=== PATIENT | female | born 1985 | race African-American/Black ===

== ENCOUNTER 2016-10-26 22:15 | Emergency (ER) | payer BC ==
[~2016-10-26] VITALS: Ht 157.5 cm; Wt 64.9 kg
[~2016-10-26 22:15] MED LIST: IBUPROFEN600 MG ORAL; NORCO 5-325 TA1 EACH ORAL; OXYCONTIN10 MG ORAL; PERCOCET 5-3251 EACH ORAL
[2016-10-26] MEDS ORDERED: HYDROmorphone 1mg/ml Carpuject IVP ONE (23:00)
[2016-10-26 23:15] VITALS: BP 128/74
[2016-10-26 23:15] LABS: APPEARANCE,URINE CLOUDY; EOSINOPHILS % (AUTO) 2.7 % (0.0-3.0); KETONES,URINE 3+ (NEGATIVE); LEUKOCYTE ESTERASE ,URINE 1+ (NEGATIVE); LYMPHOCYTES % (AUTO) 23.2 % (20.0-45.0); MEAN CORPUSCULAR HEMOGLOBIN 28.4 PG (27.0-31.0); MEAN CORPUSCULAR HGB CONC 32.5 G/DL (32.0-36.0); MEAN CORPUSCULAR VOLUME 88 FL (80-99); MEAN PLATELET VOLUME 7.6 FL (6.5-10.1); MONOCYTES % (AUTO) 6.4 % (1.0-10.0); NEUTROPHILS % (AUTO) 66.8 % (45.0-75.0); NITRITE,URINE NEGATIVE (NEGATIVE); PH,URINE 5 (4.5-8.0); PLATELET COUNT 275 K/UL (150-450); PROTEIN,URINE 1+ (NEGATIVE); RED BLOOD COUNT 3.95 M/UL (4.20-5.40); RED CELL DISTRIBUTION WIDTH 11.6 % (11.6-14.8); UROBILINOGEN,URINE NORMAL MG/DL (0.0-1.0); WHITE BLOOD COUNT 6.2 K/UL (4.8-10.8)
[2016-10-26 23:26] LABS: BACTERIA,URINE FEW /HPF; RBC,URINE TNTC /HPF (0 - 2); SQUAMOUS EPITHELIAL CELL,UR FEW /LPF (NONE/OCC)
--- NOTE | 2016-10-26 23:27 | Emergency Room Report ---
History of Present Illness General Chief Complaint: Abdominal Pain Source: Patient Present Illness HPI Is a 30-year-old female with a history of fibroid. She had recent embolization last month. Since then she's been having pain and bleeding. Worse tonight. No fever or chills but no nausea no vomiting. Pain is lower quadrant. 10 out of 10. Worse with movement. Similar presentation in the past. Pain medication not helping. Allergies: Coded Allergies: No Known Allergies (Unverified , 09/17/16) Patient History Past Medical History: see triage record, old chart reviewed Past Surgical History: other Pertinent Family History: none Social History: Denies: smoking Last Menstrual Period: 10/26/16 Now: No Immunizations: other Reviewed Nursing Documentation: PMH: Agreed, PSxH: Agreed Nursing Documentation-PMH Hx Cardiac Problems: No Hx Cancer: No Hx Gastrointestinal Problems: No Hx Neurological Problems: No Review of Systems Eye: Denies: blurred vision, eye pain ENT: Denies: ear pain, nose congestion, throat swelling Respiratory: Denies: cough, shortness of breath Cardiovascular: Denies: chest pain, palpitations Gastrointestinal: Denies: abdominal pain, diarrhea, nausea, vomiting Musculoskeletal: Denies: back pain, joint pain Skin: Denies: rash Neurological: Denies: headache, numbness Endocrine: Denies: increased thirst, increased urine Hematologic/Lymphatic: Denies: easy bruising All Other Systems: negative except mentioned in HPI Physical Exam Vital Signs Date Time Temp Pulse Resp B/P Pulse Ox O2 Delivery O2 Flow Rate FiO2 10/26/16 22:21 98.1 74 17 130/71 99 Room Air vitals normal Sp02 EP Interpretation: reviewed, normal General Appearance: well appearing, no apparent distress, alert Head: normocephalic, atraumatic Eyes: bilateral eye EOMI, bilateral eye PERRL ENT: hearing grossly normal, normal pharynx Neck: full range of motion, supple, no meningismus Respiratory: chest non-tender, lungs clear, normal breath sounds Cardiovascular #1: regular rate, rhythm, no murmur Gastrointestinal: normal bowel sounds, no mass, no organomegaly, no bruit, non- distended, tenderness - Lower abdominal Musculoskeletal: back normal, gait/station normal, normal range of motion Neurologic: alert, oriented x3 Psychiatric: mood/affect normal Skin: warm/dry Medical Decision Making Diagnostic Impression: Primary Impression: Abdominal pain Qualified Codes: R10.84 - Generalized abdominal pain ER Course Patient presents with abdominal pain and chronic vaginal bleeding. Labs unremarkable. CT scan unremarkable. She felt better now. We'll discharge home. She said that she has pain medication at home already. Lab Results Impression labs are normal CT/MRI/US Diagnostic Results CT/MRI/US Diagnostic Results : Imaging Test Ordered: CT abdomen and pelvis Impression negative per radiologist Last Vital Signs Date Time Temp Pulse Resp B/P Pulse Ox O2 Delivery O2 Flow Rate FiO2 10/26/16 22:21 98.1 74 17 130/71 99 Room Air Status: improved Disposition: HOME, SELF-CARE Condition: Stable Scripts Ibuprofen* (MOTRIN*) 600 Mg Tablet 600 MG ORAL THREE TIMES A DAY, #30 TAB 0 Refills Prov: SAYDA ALLEN M.D. 10/27/16 Referrals: Nathaniel Peoples MD (PCP) Patient Instructions: Abdominal Pain, Adult Additional Instructions: Followup with your Dr. in 2-3 days. Return if symptom worsen. SAYDA ALLEN M.D. Oct 26, 2016 23:26
[2016-10-26 23:28] LABS: ALANINE AMINOTRANSFERASE 9 U/L (3-33); ALBUMIN/GLOBULIN RATIO 1.2 (1.0-2.7); ANION GAP 15 (5-15); ASPARTATE AMINO TRANSFERASE 17 U/L (5-40); CALCIUM 9.4 mg/dL (8.6-10.2); CARBON DIOXIDE 22 mEQ/L (20-30); CHLORIDE 100 mEQ/L (98-107); CREATININE 0.7 mg/dL (0.5-0.9); GLOMERULAR FILTRATION RATE > 60 mL/min (>60); HEMOLYSIS 6; LIPASE 64 U/L (< 60); POTASSIUM 4.1 mEQ/L (3.4-4.9); SODIUM 137 mEQ/L (135-145); TOTAL PROTEIN 7.6 g/dL (6.6-8.7)
[2016-10-27 00:30] VITALS: BP 126/76
[2016-10-27] MEDS ORDERED: IBUPROFEN600 MG ORAL (01:09)
[2016-10-27 01:30] VITALS: BP 130/78
[2016-10-27] MEDS ORDERED: HYDROmorphone 1mg/ml Carpuject IVP ONE (01:30)
--- NOTE | 2016-10-27 10:08 | Diagnostic Imaging Report ---
Clinical Indication: Abdominal pain Technique: No oral contrast utilized, per emergency room physician request IV administration nonionic contrast. Venous phase spiral acquisition obtained through the abdomen and pelvis. Multiplanar reconstructions were generated. Total dose length product 666 mGycm. CTDIvol(s) 13 mGy Comparison: 09/17/2016 Findings: There is mild/moderate distention of the terminal ileum which is filled with small bowel feces. The remainder the small bowel is not dilated, however. No evidence of diverticulosis or diverticulitis. Normal appendix. No free or loculated intraperitoneal air or fluid. The distal esophagus, stomach, duodenum are unremarkable. There is mild diastases of the rectus abdominis tendon. The liver demonstrates a subcentimeter low-attenuation lesion in segment 5, too small to characterize, most likely benign simple cyst. The remainder the liver is unremarkable. The gallbladder, bile ducts, pancreas, adrenals kidneys are unremarkable. As previously, the spleen is borderline enlarged. No mesenteric or retroperitoneal mass or adenopathy. Again demonstrated is heterogeneity to the uterus. There is increased uterine low attenuation is compared to the prior study. No adnexal mass. Arterial embolic coils are seen in the left adnexal region. No adnexal mass is evident. The included lung bases demonstrate a 4 mm noncalcified nodule on the left, image 4 of series 6. The bones are unremarkable. Impression: Increased low-attenuation of the uterus, consistent with progressive fibroid necrosis in patient with known history of recent uterine fibroid embolization Nonspecific dilatation of the terminal ileum with evidence of stasis of contents. Significance uncertain, no definite obstructive pathology Subcentimeter low-attenuation right lobe liver lesion, too small to characterize, most likely a simple cyst or bile hamartoma. No further followup needed This agrees with the preliminary interpretation provided overnight by [facility]. 4 mm left basilar lung nodule. There is no significant smoking history or other risk factors for lung carcinoma, no further followup is needed. If there are significant this factors for lung carcinoma, and recommend short interval followup at 6-12 months. This finding was not discussed on the preliminary report, but was phoned to Dr. Hernandez in the emergency room at the time of interpretation The CT scanner at [facility] is accredited by the [employer] and the scans are performed using protocols designed to limit radiation exposure to as low as reasonably achievable to attain images of sufficient resolution adequate for diagnostic evaluation.
== END 2016-10-27 01:30 | disposition home or self-care (01) ==
LOC: EMR 22:45
DX: R10.84 Generalized abdominal pain (principal); N93.9 Abnormal uterine and vaginal bleeding, unspecified
CPT/HCPCS: 36415; 74177; 80053; 81003; 81025; 83690; 85025; 96361; 96374; 96375; 99284; J1170; J2405; Q9967